=== PATIENT | male | born 1995 | race Caucasian/White ===

== ENCOUNTER 2020-05-14 05:38 | Emergency (ER) | payer OTHER ==
--- NOTE | 2020-05-14 05:41 | ED Physician Documentation ---
History of Present Illness - Stated complaint Stated Complaint: ANXIETY - History obtained from History obtained from: Patient - History of Present Illness Timing: How many days ago (3) Improved by: nothing Worsened by: more anxious at night when lying down trying to sleep - Additonal information Additional information: c/o 3 days of generalized anxiety and insomnia. He feels the anxiety is contributing to, possibly causing, his insomnia. There is no specific event nor past event(s) that caused/are causing the anxiety. He has been taking melatonin and benadryl to help him sleep without results. Denies h/o similar symptoms. Review of Systems Cardiac: denies: Chest pain / pressure, Palpitations Respiratory: denies: Dyspnea Psychiatric: reports: Anxiety, Insomnia. denies: Depressed, Suicidal PD PAST MEDICAL HISTORY - Past Medical History Past Medical History: No - Present Medications Home Medications: Ambulatory Orders Medication Instructions Recorded Confirmed LORazepam [Ativan] 1 - 2 mg PO BID PRN #14 tablet 05/14/20 - Allergies Allergies/Adverse Reactions: Allergies Allergy/AdvReac Type Severity Reaction Status Date / Time No Known Drug Allergies Allergy Verified 05/14/20 06:13 - Living Situation Living Arrangement: reports: At home PD ED PE NORMAL - Vitals Vital signs reviewed: Yes - General General: Alert and oriented X 3, No acute distress, Well developed/nourished - HEENT HEENT: Moist mucous membranes - Cardiac Cardiac: RRR, No murmur - Respiratory Respiratory: No respiratory distress, Clear bilaterally Results - Vitals Vitals: Vital Signs - 24 hr 05/14/20 05/14/20 05/14/20 05:45 05:49 06:18 Temperature 36.8 C 36.8 C 36.8 C Heart Rate 102 H 102 H 91 Respiratory 16 16 16 Rate Blood Pressure 154/92 H 154/92 H 146/81 H O2 Saturation 98 98 99 Oxygen O2 Source Room air PD MEDICAL DECISION MAKING - ED course Complexity details: considered differential, d/w patient ED course: insomnia x 3 days with generalized anxiety. He does not describe alcohol use in a pattern that would suggest withdrawal is causing, or contributing to, his symptoms. He has a ride home from the ED and does not work today. Given 1 mg PO lorazepam with rx for short course of PRN lorazepam. We discussed driving restrictions with this medication, potential side effects, abuse potential, and that it is only intended for short-term use. Encouraged to return if worse, and to follow up with his primary care provider to discuss other approaches to treat anxiety. Departure - Departure Disposition: 01 Home, Self Care Clinical Impression: Anxiety, Insomnia Condition: Good Instructions: ED Insomnia Follow-Up: JEWEL Singh [Provider Group] Prescriptions: LORazepam [Ativan] 1 - 2 mg PO BID PRN #14 tablet PRN Reason: Anxiety Comments: Avoid taking the 2mg (two tablet) dose of the prescribed medication except at bedtime as needed for insomnia. If you have anxiety during the day, you can take [address] nor work within 6 hours of a dose. Discharge Date/Time: 05/14/20 06:20
[2020-05-14] MEDS ORDERED: LORazepam 0.5 MG TABLET PO STA (06:08)
[2020-05-14 06:20] VITALS: BP 146/81
== END 2020-05-14 06:20 | disposition home or self-care (01) ==
LOC: ED 05:38
DX: F41.1 Generalized anxiety disorder (principal); G47.00 Insomnia, unspecified
CPT/HCPCS: 99282; 99283; A9270